=== PATIENT | female | born 1945 | race Caucasian/White ===

== ENCOUNTER 2018-11-22 10:31 | Inpatient (IN) ==
[2018-11-22] MEDS ORDERED: 0.9 % Sodium Chloride 1,000 ML IVC ONE ×2 (10:39→11:22)
[2018-11-22] MEDS ORDERED: Ipratropium/Albuterol Neb 3 ML IH ONE (10:42)
[2018-11-22] MEDS ORDERED: Albuterol 2.5 MG/3 ML NEBULIZER IH ONE (10:43)
--- NOTE | 2018-11-22 10:47 | Emergency Department Note ---
Disposition Clinical Impression: Community acquired pneumonia, DVT prophylaxis, Hypoxia Disposition: Transfer Short-Term Hosp Referrals: Deandra Dominguez CNP [Primary Care Provider] - Forms: ED Satisfaction Letter Time of Disposition: 13:06 ( ) SOB HPI - General Chief Complaint: ED Shortness of Breath/Dyspnea Stated Complaint: shortness of breath Time Seen by Provider: 11/22/18 10:45 Source: patient, family Mode of arrival: private vehicle Limitations: no limitations Nursing Notes Reviewed: Yes Vital Signs Reviewed: Yes - History of Present Illness 73-year-old female brought to the emergency department by her with complaints of cough congestion and progressive shortness of breath. On arrival patient was found to have oxygen saturation on room air of 80% was placed on 2 L of oxygen by nasal cannula she is presently satting around 91%. She reports progressive shortness of breath over the last few days. Patient also reports that 2 months ago she had a stroke, which has caused her left leg to be numb and she does have some mild ambulatory difficulty. Patient reports a low-grade temperature at home, and production of yellow greenish sputum. Patient denies any vomiting or diarrhea and denies chest pain Pt Subjective Complaint: shortness of breath, cough Onset (ago): Just WAGE HAND Context: recent illness Severity: moderate Consistency/Duration: constant Improves with: oxygen, rest Worsens with: exertion, movement, coughing Associated symptoms: Reports: cough, wheezing, sputum production. Denies: chest pain, pain with inspiration, fever, orthopnea, lower extremity pain, polyuria, polydipsia, parasthesias, palpitations, hemoptysis, diaphoresis, nausea/vomiting, syncope, abdominal pain Treatment prior to arrival: none Cough present: Yes Cough Description: Voluntary Cough Frequency: Intermittent Sputum production: Yes Sputum Amount: Small Sputum Color: Yellow - Related Data Home Medications Medication Instructions Recorded Confirmed Oxybutynin [Ditropan] 5 mg PO BID 09/05/16 11/22/18 Losartan/Hydrochlorothiazide 1 tab PO DAILY 08/24/17 11/22/18 [Losartan-Hctz 50-12.5 mg Tab] Cholecalciferol (Vitamin D3) 1,000 unit PO DAILY 01/24/18 11/22/18 [Vitamin D3] Meloxicam [Mobic] 15 mg PO DAILY 01/24/18 11/22/18 Tizanidine HCl 4 mg PO TID PRN 01/24/18 11/22/18 hydrOXYzine pamoate [HydrOXYzine 25 mg PO BID PRN 01/24/18 11/22/18 Pamoate] Furosemide [Lasix] 40 mg PO DAILY PRN 01/25/18 11/22/18 Primidone [Mysoline] 50 mg PO DAILY 01/25/18 11/22/18 Atorvastatin [Lipitor] 40 mg PO HS 08/25/18 11/22/18 Gabapentin [Neurontin] 600 mg PO TID 08/25/18 11/22/18 Omeprazole 20 mg PO DAILY 08/25/18 11/22/18 Tolterodine Tartrate [Detrol] 4 mg PO DAILY 08/25/18 11/22/18 Apixaban [Eliquis] 5 mg PO BID 11/22/18 11/22/18 Previous Rx's Medication Instructions Recorded Aspirin 81 mg PO DAILY #30 tab.chew 04/13/18 Allergies Allergy/AdvReac Type Severity Reaction Status Date / Time cephalexin [From Keflex] AdvReac Itching Verified 04/11/18 15:30 Sulfa (Sulfonamide AdvReac Itching Verified 04/11/18 15:30 Antibiotics) Constitutional: Denies: fever, chills, weakness, weight change Eyes: Denies: eye pain, eye discharge, vision change ENT ED: Denies: ear pain, throat pain, dental pain, hearing loss, epistaxis, congestion, dysphagia Cardiovascular: Denies: chest pain, palpitations, dyspnea on exertion, edema, syncope Respiratory: Reports: cough, dyspnea, wheezes. Denies: hemoptysis, stridor Gastrointestinal: Denies: abdominal pain, nausea, vomiting, diarrhea, cons tipation, hematemesis, melena, hematochezia Genitourinary: Denies: dysuria, frequency, hematuria, discharge Musculoskeletal: Denies: back pain, neck pain, arthralgia, myalgia Integumentary: Denies: rash, abrasion, lesions Neurological: Denies: headache, weakness, numbness, paresthesias, confusion, a bnormal gait, vertigo Psychiatric: Denies: anxiety, depression, suicidal thoughts, homicidal thoughts, auditory hallucinations, visual hallucinations Endocrine: Denies: fatigue Hematological/Lymphatic: Denies: easy bleeding, easy bruising Allergic/Immunologic: Denies: facial swelling, urticaria Past Medical History - Past Medical History Medical history: Reports: arthritis, atrial fibrillation, COPD, CVA, GERD, hyperlipidemia, hypertension, pulmonary embolus Surgical history: Reports: appendectomy, cholecystectomy, knee replacement, orthopedic, other, other Psychiatric history: Reports: no psych history - Social History Smoking Status: Never smoker Smokeless Tobacco Status: No Alcohol use: Reports: none Drug use: Reports: none Physical Exam - General Limitations: no limitations General appearance: alert - Head Head exam: atraumatic, normocephalic, normal inspection - Eye Eye exam: Present: normal appearance, PERRL, EOMI - Expanded Eye Exam Pupils: Left: reactive - ENT ENT exam: normal exam, normal oropharynx, mucous membranes moist - Expanded ENT Exam External ear exam: Present: normal external inspection Mouth exam: Present: normal external inspection Teeth exam: Present: normal inspection Throat exam: Present: normal inspection - Neck Neck exam: Present: normal inspection, full ROM, trachea midline - Chest Chest inspection: Present: normal inspection, symmetric chest wall rise - Respiratory Respiratory exam: Present: wheezes, accessory muscle use - Cardiovascular Cardiovascular exam: Present: regular rate, irregular rhythm, normal heart sounds - Abdominal Exam Abdominal exam: Present: soft, Non-Tender. Absent: tenderness, distention, guarding, rebound, rigidity - Extremities Exam Extremities exam: Present: normal inspection, full ROM. Absent: tenderness, pedal edema - Expanded Upper Extremity Exam Shoulder exam: Present: normal inspection, full ROM Arm exam: Present: normal inspection, full ROM Elbow exam: Present: normal inspection, full ROM Forearm/Wrist exam: Present: normal inspection, full ROM Hand exam: Present: normal inspection, full ROM Vascular exam: Normal: capillary refill, radial pulse - Expanded Lower Extremity Exam Hip/Pelvis exam: Present: normal inspection, full ROM Upper leg exam: Present: normal inspection, full ROM Knee exam: Present: normal inspection, full ROM Lower leg exam: Present: normal inspection, full ROM Ankle exam: Present: normal inspection, full ROM Foot/toe exam: Present: normal inspection, full ROM Neurovascular/Tendon exam: Absent: motor deficit, sensory deficit, tendon deficit - Back Exam Back exam: Present: normal inspection, full ROM. Absent: tenderness - Neurological Exam Neurological exam: Present: alert, oriented X3 - Expanded Neurological Exam Patient oriented to: Present: person, place, time Coma Scale Eye Opening: Spontaneous Coma Scale Motor Response: Obeys Commands Coma Scale Verbal Response: Oriented Coma Scale Total: 15 - Psychiatric Psychiatric exam: Present: normal affect, normal mood - Skin Skin exam: Present: warm, dry, intact, normal color Course Vital Signs Temperature 97.3 F L 11/22/18 10:32 Pulse Rate 64 11/22/18 10:32 Respiratory Rate 14 11/22/18 10:32 Blood Pressure 162/77 11/22/18 10:32 O2 Sat by Pulse Oximetry 80 11/22/18 10:32 Temperature 97.3 F L 11/22/18 10:32 Pulse Rate 68 11/22/18 13:04 Respiratory Rate 18 11/22/18 13:04 Blood Pressure 162/77 11/22/18 13:04 O2 Sat by Pulse Oximetry 94 11/22/18 13:04 Oxygen Delivery Oxygen Delivery Nasal Cannula Shortness of Breath/Dyspnea - MDM Narrative Medical decision making narrative: Labs are obtained including CBC chemistry troponin and BNP and coags patient was given DuoNeb 1, albuterol 1, Solu-Medrol 125 mg IV, blood culture 2 was obtained. Patient was given a 1 L bolus of normal saline, and given Levaquin 750 mg IV. Patient is allergic to cephalexin and sulfa and as a result cannot receive Rocephin. At this point consultation is obtained with hospitalist Dr. Childs, patient is to be admitted for IV antibiotics and further breathing treatments - Differential Diagnosis Likely: acute exacerbation of chronic obstructive airways disease, congestive heart failure, pneumonia, asthma with exacerbation, pulmonary embolism - Medical Records Medical records reviewed: Yes I reviewed the patient's medical records. - Lab Data Lab results reviewed: Yes I reviewed the patient's lab results. Result diagrams: 11/22/18 10:53 11/22/18 10:53 Lab Results 11/22/18 11/22/18 11/22/18 Range/Units 10:53 10:53 10:53 WBC 7.3 (4.3-11.1) K/mcL RBC 4.07 (3.82-4.97) M/mcL Hgb 11.6 (11.5-15.4) g/dL Hct 36.2 (35.3-44.9) % MCV 88.9 (83.0-100.0) fL MCH 28.5 (28.0-33.3) pg MCHC 32.0 (31.6-35.5) g/dL RDW 13.7 (11.5-14.5) % Plt Count 396 (140-400) K/mcL MPV 10.0 (9.4-12.4) fL Immature Gran % 0.3 (0-4) % Seg Neutrophils % 56.5 % Lymphocytes % 27.5 % Monocytes % 8.9 % Eosinophils % 6.0 % Basophils % 0.8 % Neutrophils # 4.1 (1.6-8.9) K/mcL Lymphocytes # 2.0 (0.6-4.6) K/mcL Monocytes # 0.7 (0.0-1.3) K/mcL Eosinophils # 0.4 (0.0-0.6) K/mcL Basophils # 0.1 (0.0-0.2) K/mcL PT 19.7 H (9.4-12.1) Seconds INR 1.7 APTT 44.4 H (26.0-36.0) Seconds D-Dimer (0-500) ng/mLFEU Sample Site ABG pH (7.32-7.45) pH Units ABG pCO2 (35-45) mmHg ABG pO2 (85-104) mmHg ABG HCO3 (21-27) mEq/L ABG Total CO2 (20-26) mEq/L ABG O2 Saturation (95-98) % ABG Base Excess (-2 to 3) mEq/L Bryan Test O2 Delivery Device Inspired O2 (1-15=lpm [id number]=%) Sodium 139 (136-145) mEq/L Potassium 3.6 (3.5-5.1) mEq/L Chloride 105 (98-107) mEq/L Carbon Dioxide 24 (23-29) mEq/L BUN 11 (8-23) mg/dL Creatinine 0.69 (0.60-1.20) mg/dL Est GFR ( Amer) > 60 (> 60) Est GFR (Non-Af Amer) > 60 (> 60) BUN/Creatinine Ratio 16 (6-26) Glucose 109 H (70-105) mg/dL Calculated Osmolality 288 (280-300) Lactic Acid (0.5-2.2) mmol/L Calcium 8.8 (8.6-10.3) mg/dL Creatine Kinase 36 (30-223) Units/L Troponin I < 0.03 (< 0.04) ng/mL B-Natriuretic Peptide (Less than 100) pg/mL Urine Color (Yellow) Urine Clarity (Clear) Urine pH (5.0-8.0) pH Units Ur Specific [place] (1.010-1.025) Urine Protein (Neg-Trace) mg/dL Urine Glucose (UA) (Normal) mg/dL Urine Ketones (Negative) mg/dL Urine Blood (Negative) Urine Nitrite (Negative) Urine Bilirubin (Negative) Urine Urobilinogen (Normal) mg/dL Ur Leukocyte Esterase (Negative) 11/22/18 11/22/18 11/22/18 Range/Units 10:53 10:53 10:53 WBC (4.3-11.1) K/mcL RBC (3.82-4.97) M/mcL Hgb (11.5-15.4) g/dL Hct (35.3-44.9) % MCV (83.0-100.0) fL MCH (28.0-33.3) pg MCHC (31.6-35.5) g/dL RDW (11.5-14.5) % Plt Count (140-400) K/mcL MPV (9.4-12.4) fL Immature Gran % (0-4) % Seg Neutrophils % % Lymphocytes % % Monocytes % % Eosinophils % % Basophils % % Neutrophils # (1.6-8.9) K/mcL Lymphocytes # (0.6-4.6) K/mcL Monocytes # (0.0-1.3) K/mcL Eosinophils # (0.0-0.6) K/mcL Basophils # (0.0-0.2) K/mcL PT (9.4-12.1) Seconds INR APTT (26.0-36.0) Seconds D-Dimer 1002 H (0-500) ng/mLFEU Sample Site ABG pH (7.32-7.45) pH Units ABG pCO2 (35-45) mmHg ABG pO2 (85-104) mmHg ABG HCO3 (21-27) mEq/L ABG Total CO2 (20-26) mEq/L ABG O2 Saturation (95-98) % ABG Base Excess (-2 to 3) mEq/L Bryan Test O2 Delivery Device Inspired O2 (1-15=lpm [id number]=%) Sodium (136-145) mEq/L Potassium (3.5-5.1) mEq/L Chloride (98-107) mEq/L Carbon Dioxide (23-29) mEq/L BUN (8-23) mg/dL Creatinine (0.60-1.20) mg/dL Est GFR ( Amer) (> 60) Est GFR (Non-Af Amer) (> 60) BUN/Creatinine Ratio (6-26) Glucose (70-105) mg/dL Calculated Osmolality (280-300) Lactic Acid 1.4 (0.5-2.2) mmol/L Calcium (8.6-10.3) mg/dL Creatine Kinase (30-223) Units/L Troponin I (< 0.04) ng/mL B-Natriuretic Peptide 136 H (Less than 100) pg/mL Urine Color (Yellow) Urine Clarity (Clear) Urine pH (5.0-8.0) pH Units Ur Specific [place] (1.010-1.025) Urine Protein (Neg-Trace) mg/dL Urine Glucose (UA) (Normal) mg/dL Urine Ketones (Negative) mg/dL Urine Blood (Negative) Urine Nitrite (Negative) Urine Bilirubin (Negative) Urine Urobilinogen (Normal) mg/dL Ur Leukocyte Esterase (Negative) 11/22/18 11/22/18 Range/Units 11:22 12:30 WBC (4.3-11.1) K/mcL RBC (3.82-4.97) M/mcL Hgb (11.5-15.4) g/dL Hct (35.3-44.9) % MCV (83.0-100.0) fL MCH (28.0-33.3) pg MCHC (31.6-35.5) g/dL RDW (11.5-14.5) % Plt Count (140-400) K/mcL MPV (9.4-12.4) fL Immature Gran % (0-4) % Seg Neutrophils % % Lymphocytes % % Monocytes % % Eosinophils % % Basophils % % Neutrophils # (1.6-8.9) K/mcL Lymphocytes # (0.6-4.6) K/mcL Monocytes # (0.0-1.3) K/mcL Eosinophils # (0.0-0.6) K/mcL Basophils # (0.0-0.2) K/mcL PT (9.4-12.1) Seconds INR APTT (26.0-36.0) Seconds D-Dimer (0-500) ng/mLFEU Sample Site L Brach ABG pH 7.44 (7.32-7.45) pH Units ABG pCO2 31 L (35-45) mmHg ABG pO2 64 L (85-104) mmHg ABG HCO3 21 (21-27) mEq/L ABG Total CO2 22 (20-26) mEq/L ABG O2 Saturation 93 L (95-98) % ABG Base Excess -3 L (-2 to 3) mEq/L Bryan Test N/A O2 Delivery Device Cannula Inspired O2 2.0 (1-15=lpm [id number]=%) Sodium (136-145) mEq/L Potassium (3.5-5.1) mEq/L Chloride (98-107) mEq/L Carbon Dioxide (23-29) mEq/L BUN (8-23) mg/dL Creatinine (0.60-1.20) mg/dL Est GFR ( Amer) (> 60) Est GFR (Non-Af Amer) (> 60) BUN/Creatinine Ratio (6-26) Glucose (70-105) mg/dL Calculated Osmolality (280-300) Lactic Acid (0.5-2.2) mmol/L Calcium (8.6-10.3) mg/dL Creatine Kinase (30-223) Units/L Troponin I (< 0.04) ng/mL B-Natriuretic Peptide (Less than 100) pg/mL Urine Color Yellow (Yellow) Urine Clarity Cloudy A (Clear) Urine pH 6.5 (5.0-8.0) pH Units Ur Specific [place] 1.010 (1.010-1.025) Urine Protein Negative (Neg-Trace) mg/dL Urine Glucose (UA) Normal (Normal) mg/dL Urine Ketones Negative (Negative) mg/dL Urine Blood Trace-intact H (Negative) Urine Nitrite Negative (Negative) Urine Bilirubin Negative (Negative) Urine Urobilinogen Normal (Normal) mg/dL Ur Leukocyte Esterase Moderate H (Negative) - Radiology Data Radiology results reviewed: Yes I reviewed the patient's radiology results. Chest x-ray by radiology reading shows development of bilateral pneumonia versus pulmonary edema - EKG Data EKG attestation: Yes I reviewed and interpreted this EKG. EKG results narrative: EKG has heart rate of 51, shows a flutter, with 4-1 conduction Rate: Reports: normal Rhythm: Reports: A. flutter [place]/QRS: Reports: normal
[2018-11-22 11:00] LABS: Basophils # 0.1 K/mcL (0.0-0.2); Basophils % 0.8 %; Eosinophils # 0.4 K/mcL (0.0-0.6); Hematocrit 36.2 % (35.3-44.9); Hemoglobin 11.6 g/dL (11.5-15.4); Immature Granulocytes % 0.3 % (0-4); Lymphocytes % 27.5 %; Mean Corpuscular Hemoglobin 28.5 pg (28.0-33.3); Mean Corpuscular Volume 88.9 fL (83.0-100.0); Monocytes # 0.7 K/mcL (0.0-1.3); Monocytes % 8.9 %; Neutrophils # 4.1 K/mcL (1.6-8.9); Platelet Count 396 K/mcL (140-400); Red Blood Count 4.07 M/mcL (3.82-4.97); Red Cell Distribution Width 13.7 % (11.5-14.5); Segmented Neutrophils % 56.5 %
[2018-11-22] MEDS ORDERED: Levofloxacin 750 MG/150 ML 750 MG/150 ML BAG IVPB ONE (11:15)
[2018-11-22 11:18] LABS: BUN/Creatinine Ratio 16 (6-26); Blood Urea Nitrogen 11 mg/dL (8-23); Calcium 8.8 mg/dL (8.6-10.3); Carbon Dioxide 24 mEq/L (23-29); Chloride 105 mEq/L (98-107); Creatine Kinase 36 Units/L (30-223); Glucose 109 mg/dL (70-105); Osmolality,Calculated 288 (280-300); Potassium 3.6 mEq/L (3.5-5.1); Sodium 139 mEq/L (136-145); Troponin I < 0.03 ng/mL (< 0.04); eGFR For Non-African Americans > 60 (> 60)
[2018-11-22 11:25] LABS: ABG Base Excess -3 mEq/L (-2 to 3); ABG HCO3 21 mEq/L (21-27); ABG Oxygen Saturation 93 % (95-98); ABG PCO2 31 mmHg (35-45); ABG PH 7.44 pH Units (7.32-7.45); ABG PO2 64 mmHg (85-104); ABG TCO2 22 mEq/L (20-26)
[2018-11-22 11:34] LABS: INR 1.7; Prothrombin Time 19.7 Seconds (9.4-12.1)
[2018-11-22 11:37] LABS: Activated Partial Thrombo Time 44.4 Seconds (26.0-36.0)
[2018-11-22] MEDS ORDERED: Naloxone 0.4 MG/ML INJ IVP PRN ×2 (11:46→14:07)
[2018-11-22] MEDS ORDERED: Isovue-370 500 ML BOTTLE IVP ONE (11:59)
[2018-11-22] MEDS ORDERED: Doxycycline 100 MG in 0.9 % Sodium Chloride Mini Bag 100 ML IVPB SCH (12:00)
[2018-11-22 12:51] LABS: Bilirubin,Urine Negative (Negative); Blood,Urine Trace-intact (Negative); Clarity,Urine Cloudy (Clear); Color,Urine Yellow (Yellow); Glucose,Urine (UA) Normal (Normal); Ketones,Urine Negative (Negative); Leukocyte Esterase,Urine Moderate (Negative); Nitrite,Urine Negative (Negative); PH,Urine 6.5 pH Units (5.0-8.0); Protein,Urine Negative (Neg-Trace); Urobilinogen,Urine Normal (Normal)
[2018-11-22 13:05] LABS: RBC,Urine 0-3 per hpf (0-3); WBC,Urine 30-50 per hpf (0-3)
[2018-11-22 13:06] LABS: Bacteria,Urine Many per hpf (None-Few); Mucus,Urine Few (Few); Squamous Epithelial Cell,Urine Many per lpf (None-Few)
[2018-11-22] MEDS ORDERED: tiZANidine 4 MG TABLET PO PRN (14:07)
[2018-11-22] MEDS ORDERED: Furosemide 40 MG TABLET PO PRN (14:07)
[2018-11-22] MEDS ORDERED: hydrOXYzine pamoate 25 MG CAPSULE PO PRN (14:07)
[2018-11-22] MEDS: Gabapentin 300 MG CAPSULE PO SCH ×2 (15:50→20:55)
--- NOTE | 2018-11-22 18:29 | Internal Med History&Physical ---
Date of Encounter: 11/22/18 Time of Encounter: 18:00 Assessment and Plan (1) Community acquired pneumonia Current visit: Yes Status: Acute Chest CTA in ER showed bibasilar atelectasis/infiltrate with indeterminate mediastinal and bilateral hilar lymphadenopathy. She will be started on antibiotics and probiotics. Qualifiers: Laterality: unspecified laterality Qualified Code(s): J18.9 - Pneumonia, unspecified organism (2) Hypertension Current visit: No Status: Chronic Continue losartan/HCTZ Qualifiers: Hypertension type: essential hypertension Qualified Code(s): I10 - Essential (primary) hypertension (3) Paroxysmal atrial fibrillation Current visit: No Status: Chronic Continue Eliquis (4) Low TSH level Current visit: No Status: Acute TSH was 0.166 on 11/08/2015. Recheck in a.m. Internal Medicine - H&P: HPI Chief complaint: Dyspnea, chills, dizziness Admitted From: Emergency Dept Plans for Post Hospital Care: Home History of present illness: Ms. Smith is a 73 year old female who came to emergency room stating she developed a "cold" approximately 2 weeks ago. She noticed increase in dyspnea 5-6 days ago with occasional cough productive of yellow sputum. She had chills, headache, and dizziness/vertigo. She denies vomiting diarrhea or abdominal pain. When symptoms did not improve she came to emergency room and was evaluated. She was felt to have bibasilar pneumonia and [facility]. Respiratory history is significant for being a lifelong nonsmoker and having no known chronic lung disease. She has been diagnosed with WEST but has not tolerated CPAP mask in the past. Past Med Surg Social Fam HX - Past Medical History Medical history: arthritis, atrial fibrillation, COPD, CVA, GERD, hyperlipidemia, hypertension, pulmonary embolus Additional medical history: Parkinson's Psychiatric history: no psych history - Past Surgical History Surgical History: appendectomy, cholecystectomy, knee replacement, orthopedic, other, other Additional surgical history: Bladder surgery. back and neck sx - Social History Smoking Status: Never smoker Smokeless Tobacco Status: No Alcohol use: none Drug use: none - Family History Mother Living Status: Hx Family Cancer: Yes Hx Family Neurologic Disorders: Yes (alzhemiers, tremors) Father Living Status: Hx Family Cardiac Disorders: Yes (MN) Internal Medicine - H&P: Meds Oxybutynin [Ditropan] 5 mg PO BID 09/05/16 [History] Losartan/Hydrochlorothiazide [Losartan-Hctz 50-12.5 mg Tab] 1 tab PO DAILY 08/24/17 [History] Cholecalciferol (Vitamin D3) [Vitamin D3] 1,000 unit PO DAILY 01/24/18 [History] Meloxicam [Mobic] 15 mg PO DAILY 01/24/18 [History] Tizanidine HCl 4 mg PO TID PRN 01/24/18 [History] hydrOXYzine pamoate [HydrOXYzine Pamoate] 25 mg PO BID PRN 01/24/18 [History] Furosemide [Lasix] 40 mg PO DAILY PRN 01/25/18 [History] Primidone [Mysoline] 50 mg PO DAILY 01/25/18 [History] Aspirin 81 mg PO DAILY #30 tab.chew 04/13/18 [Rx] Atorvastatin [Lipitor] 40 mg PO HS 08/25/18 [History] Gabapentin [Neurontin] 600 mg PO TID 08/25/18 [History] Omeprazole 20 mg PO DAILY 08/25/18 [History] Tolterodine Tartrate [Detrol] 4 mg PO DAILY 08/25/18 [History] Apixaban [Eliquis] 5 mg PO BID 11/22/18 [History] Allergy/AdvReac Type Severity Reaction Status Date / Time cephalexin [From Keflex] AdvReac Itching Verified 04/11/18 15:30 Sulfa (Sulfonamide AdvReac Itching Verified 04/11/18 15:30 Antibiotics) All Systems PM: A 10-system review of systems was performed and is negative for pertinent findings except as documented above in the HPI. Review of systems: Review of systems from her October 2015 [facility] hospitalization were reviewed and revised as below. Gen.: Her weight has decreased from 90.6 kg on 08/18/2018 to 81.647 kg at present time. Cardiovascular: She has a history of hypertension. Echocardiogram 04/12/2018 showed LVEF of 55-60%. The E/A ratio was 0.7 consistent with impaired relaxation/mild diastolic dysfunction. There was mild to moderate aortic insufficiency and mild aortic stenosis. Aortic valves were severely calcified. There was mild mitral regurgitation. Estimated RVSP was 37 mmHg. Interventricular septum and posterior wall thickness measurements were 1.11 and 0.89 cm respectively. There was significant LAE at 5.70 cm. She had an exercise stress test December 2011 which did not show evidence of ischemia. She denies MN. She had pulmonary embolism approximate 1999. She has paroxysmal atrial fibrillation. Respiratory: As per history of present illness GI: She has had cholecystectomy and has GERD but no known disorders of her liver or exocrine pancreas. : She has had 2 bladder surgeries in the past most recently in 1990. She has frequent urination and has had UTIs in the past. She denies other known kidney or bladder disorders. Endocrine: She has hyperlipidemia and vitamin D deficiency. She denies known diabetes or thyroid disease. Neurologic: She has familial tremor. 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. No surgical intervention was required. She has numbness and weakness in her left hand and leg. She had "laser surgery" on her spine in [place] 10/20/2015 for chronic low back pain. Hematology/oncology: She denies blood disorders cancers or anemia Psychiatric: She denies anxiety depression or other mental health issues. [place] skeletal: She has had left total knee replacement. She had laser spine surgery October 2015 followed by open surgery 2016 for chronic low back pain. She denies gout. - Constitutional Vitals: Temp Pulse Resp BP Pulse Ox 98.8 F 100 17 171/100 92 11/22/18 14:16 11/22/18 14:16 11/22/18 14:16 11/22/18 14:16 11/22/18 14:16 Exam: Gen.: She is a well-developed well-nourished female resting comfortably in bed who appears in no acute distress at present time HEENT: Head is atraumatic and normocephalic. Eyes: EOMI. There is no scleral icterus. Mouth: Mucosa is moist. Neck: Supple and nontender. There is no thyromegaly or adenopathy noted. Heart: Regular without murmurs gallops or ectopics Lungs: She has diminished breath since diffusely. No wheezes crackles or egophony are heard. Abdomen: Soft and nontender. No masses or guarding are noted. Extremities: There is no cyanosis edema or clubbing noted. Dorsalis pedis and posterior tibial pulses are trace palpable bilaterally. Neurologic: Mental status: She is talkative and a good historian. Cranial nerves: There is slight flattening of the right nasolabial fold. Her smile is overall symmetric. Tongue protrudes midline. EOMI. Motor: There is no pronator drift. She has a fine tremor at rest in her outstretched hands. Cerebellar: Finger to nose is intact bilaterally. Skin: Warm and dry Internal Med - H&P Results - Labs CBC & Chem 7: 11/22/18 10:53 11/22/18 10:53 Labs: Short CBC 11/22/18 Range/Units 10:53 WBC 7.3 (4.3-11.1) K/mcL Hgb 11.6 (11.5-15.4) g/dL Hct 36.2 (35.3-44.9) % Plt Count 396 (140-400) K/mcL Neutrophils # 4.1 (1.6-8.9) K/mcL BMP 11/22/18 10:53 Sodium 139 Potassium 3.6 Chloride 105 Carbon Dioxide 24 BUN 11 Creatinine 0.69 Glucose 109 H Calcium 8.8 Cardiac Enzymes 11/22/18 Range/Units 10:53 Troponin I < 0.03 (< 0.04) ng/mL Urine 11/22/18 Range/Units 12:30 Urine Color Yellow (Yellow) Urine Clarity Cloudy A (Clear) Urine pH 6.5 (5.0-8.0) pH Units Ur Specific [place] 1.010 (1.010-1.025) Urine Protein Negative (Neg-Trace) mg/dL Urine Glucose (UA) Normal (Normal) mg/dL - ABG Interpretation ABG results: 11/22/18 11:22 ABG pH 7.44 ABG pCO2 31 L ABG pO2 64 L ABG HCO3 21 ABG Total CO2 22 ABG O2 Saturation 93 L ABG Base Excess -3 L - Impressions ITS Impressions Chest X-Ray 11/22/18 10:39 IMPRESSION: Developing bilateral airspace disease, either early pneumonia or pulmonary edema D/ / Shashank Grier MD / Shashank Grier MD Interpreting Provider: Shashank Grier MD Chest CTA 11/22/18 11:59 IMPRESSION: 1. No acute pulmonary artery embolism. 2. Cardiomegaly with vascular congestion and bilateral pleural effusions. 3. Bibasilar atelectasis or infiltrate. 4. Hiatal hernia. 5. Indeterminate mediastinal and bilateral hilar lymphadenopathy. Recommend attention on follow-up radiographs. Differential includes reactive adenopathy versus potential neoplastic involvement. D/ / 11/22/2018 13:23:17 Shlomo Xiao MD / [facility] Interpreting Provider: Shlomo Xiao MD Head CT 11/22/18 12:18 IMPRESSION: No acute intracranial abnormality. D/ / Shlomo Xiao MD / Shlomo Xiao MD Interpreting Provider: Shlomo Xiao MD
[2018-11-22] MEDS: Apixaban 5 MG TABLET PO SCH (20:55)
[2018-11-22] MEDS: Lactobacillus 1 EACH CAP.SPRINK PO SCH (20:55)
[2018-11-22] MEDS: Melatonin 3 MG TABLET PO PRN (21:00)
[2018-11-23] MEDS: Doxycycline 100 MG in 0.9 % Sodium Chloride Mini Bag 100 ML IVPB SCH ×3 (00:37→23:53)
[2018-11-23 06:51] LABS: Basophils % 0.6 %; Eosinophils # 0.6 K/mcL (0.0-0.6); Eosinophils % 8.5 %; Hemoglobin 9.9 g/dL (11.5-15.4); Immature Granulocytes % 0.3 % (0-4); Lymphocytes # 2.1 K/mcL (0.6-4.6); Lymphocytes % 33.1 %; Mean Corpuscular HGB Conc 30.9 g/dL (31.6-35.5); Mean Corpuscular Hemoglobin 28.3 pg (28.0-33.3); Mean Corpuscular Volume 91.4 fL (83.0-100.0); Mean Platelet Volume 10.3 fL (9.4-12.4); Monocytes # 0.8 K/mcL (0.0-1.3); Monocytes % 12.2 %; Neutrophils # 2.9 K/mcL (1.6-8.9); Platelet Count 354 K/mcL (140-400); Red Cell Distribution Width 14.3 % (11.5-14.5); Segmented Neutrophils % 45.3 %
[2018-11-23 07:20] LABS: BUN/Creatinine Ratio 17 (6-26); Blood Urea Nitrogen 11 mg/dL (8-23); Calcium 8.6 mg/dL (8.6-10.3); Carbon Dioxide 24 mEq/L (23-29); Chloride 110 mEq/L (98-107); Glucose 89 mg/dL (70-105); Magnesium 1.9 mg/dL (1.6-2.6); Osmolality,Calculated 291 (280-300); Potassium 3.6 mEq/L (3.5-5.1); Sodium 141 mEq/L (136-145); eGFR For Non-African Americans > 60 (> 60)
[2018-11-23 07:30] LABS: Thyroid Stimulating Hormone 1.477 mcIU/mL (0.340-5.600)
[2018-11-23] MEDS ORDERED: Aspirin 81 MG TAB.CHEW PO SCH (09:00)
[2018-11-23] MEDS ORDERED: Losartan/HCTZ 50-12.5 TABLET PO SCH (09:00)
[2018-11-23] MEDS ORDERED: Primidone 50 MG TABLET PO SCH (09:00)
[2018-11-23] MEDS ORDERED: TOLTERODINE TARTRATE 4 MG PO SCH (09:00)
--- NOTE | 2018-11-23 09:47 | Internal Med Progress Note ---
Date of Encounter: 11/23/18 Time of Encounter: 09:35 - Assessment and plan (1) Community acquired pneumonia Current Visit: Yes Status: Acute Assessment and plan: November 23. Continue Levaquin and doxycycline with lactobacillus. Qualifiers: Laterality: unspecified laterality Qualified Code(s): J18.9 - Pneumonia, unspecified organism (2) Hypertension Current Visit: No Status: Chronic Assessment and plan: November 23. Continue Hyzaar. Qualifiers: Hypertension type: essential hypertension Qualified Code(s): I10 - Essenti al (primary) hypertension (3) Paroxysmal atrial fibrillation Current Visit: No Status: Chronic Assessment and plan: November 23. Continue Eliquis (4) Low TSH level Current Visit: No Status: Acute Assessment and plan: November 23. TSH normal at 1.477. - Subjective Interval history: November 23. She has no new complaints and feels slightly improved but not back to her baseline. - Constitutional Vitals: Temp Pulse Resp BP Pulse Ox 97.7 F 57 18 124/75 96 11/23/18 07:25 11/23/18 07:25 11/23/18 07:25 11/23/18 07:25 11/23/18 07:25 Exam: She is resting comfortably in bed and appears in no acute distress. Her affect is bright and cheerful. I reviewed her medications and lab results. Internal Medicine: Result - Labs CBC & Chem 7: 11/23/18 06:03 11/23/18 06:03 Labs: Short CBC 11/22/18 11/23/18 Range/Units 10:53 06:03 WBC 7.3 6.5 (4.3-11.1) K/mcL Hgb 11.6 9.9 L D (11.5-15.4) g/dL Hct 36.2 32.0 L (35.3-44.9) % Plt Count 396 354 (140-400) K/mcL Neutrophils # 4.1 2.9 (1.6-8.9) K/mcL BMP 11/22/18 11/23/18 10:53 06:03 Sodium 139 141 Potassium 3.6 3.6 Chloride 105 110 H Carbon Dioxide 24 24 BUN 11 11 Creatinine 0.69 0.66 Glucose 109 H 89 Calcium 8.8 8.6 Cardiac Enzymes 11/22/18 Range/Units 10:53 Troponin I < 0.03 (< 0.04) ng/mL Urine 11/22/18 Range/Units 12:30 Urine Color Yellow (Yellow) Urine Clarity Cloudy A (Clear) Urine pH 6.5 (5.0-8.0) pH Units Ur Specific [place] 1.010 (1.010-1.025) Urine Protein Negative (Neg-Trace) mg/dL Urine Glucose (UA) Normal (Normal) mg/dL - ABG Interpretation ABG results: ABG ABG pH 7.44 pH Units (7.32-7.45) 11/22/18 11:22 ABG pCO2 31 mmHg (35-45) L 11/22/18 11:22 ABG pO2 64 mmHg (85-104) L 11/22/18 11:22 ABG O2 Saturation 93 % (95-98) L 11/22/18 11:22 PT/INR, D-dimer PT 19.7 Seconds (9.4-12.1) H 11/22/18 10:53 D-Dimer 1002 ng/mLFEU (0-500) H 11/22/18 10:53 - Impressions Impressions Chest X-Ray 11/22/18 10:39 IMPRESSION: Developing bilateral airspace disease, either early pneumonia or pulmonary edema D/ / Shashank Grier MD / Shashank Grier MD Interpreting Provider: Shashank Grier MD Chest CTA 11/22/18 11:59 IMPRESSION: 1. No acute pulmonary artery embolism. 2. Cardiomegaly with vascular congestion and bilateral pleural effusions. 3. Bibasilar atelectasis or infiltrate. 4. Hiatal hernia. 5. Indeterminate mediastinal and bilateral hilar lymphadenopathy. Recommend attention on follow-up radiographs. Differential includes reactive adenopathy versus potential neoplastic involvement. D/ / 11/22/2018 13:23:17 Shlomo Xiao MD / erica Interpreting Provider: Shlomo Xiao MD Head CT 11/22/18 12:18 IMPRESSION: No acute intracranial abnormality. D/ / Shlomo Xiao MD / Shlomo Xiao MD Interpreting Provider: Shlomo Xiao MD Consult Discharge Plan - Plan Referrals: Deandra Dominguez CNP [Primary Care Provider] - 1 week
[2018-11-23] MEDS: Cholecalciferol (D-3) 1,000 UNIT TABLET PO SCH (09:56)
[2018-11-23] MEDS: Levofloxacin 750 MG/150 ML 750 MG/150 ML BAG IVPB SCH (09:56)
[2018-11-23] MEDS: Lactobacillus 1 EACH CAP.SPRINK PO SCH ×2 (09:57→20:18)
[2018-11-23] MEDS: Apixaban 5 MG TABLET PO SCH ×2 (09:57→20:18)
[2018-11-23] MEDS: Losartan/HCTZ 50-12.5 TABLET PO SCH (09:57)
[2018-11-23] MEDS: Gabapentin 300 MG CAPSULE PO SCH ×3 (09:57→20:18)
[2018-11-23] MEDS: Tolterodine LA (24 HR) 2 MG CAP.ER.24H PO SCH (11:35)
[2018-11-23] MEDS: Melatonin 3 MG TABLET PO PRN (20:18)
[2018-11-23] MEDS: Acetaminophen 325 MG TABLET PO PRN (23:17)
[2018-11-24 06:46] LABS: Basophils # 0.1 K/mcL (0.0-0.2); Basophils % 0.7 %; Eosinophils # 0.6 K/mcL (0.0-0.6); Eosinophils % 8.5 %; Hematocrit 31.6 % (35.3-44.9); Hemoglobin 9.6 g/dL (11.5-15.4); Immature Granulocytes % 0.3 % (0-4); Lymphocytes # 2.7 K/mcL (0.6-4.6); Lymphocytes % 37.6 %; Mean Corpuscular HGB Conc 30.4 g/dL (31.6-35.5); Mean Corpuscular Volume 92.1 fL (83.0-100.0); Mean Platelet Volume 10.7 fL (9.4-12.4); Monocytes # 0.7 K/mcL (0.0-1.3); Monocytes % 9.9 %; Neutrophils # 3.1 K/mcL (1.6-8.9); Platelet Count 353 K/mcL (140-400); Red Blood Count 3.43 M/mcL (3.82-4.97); Red Cell Distribution Width 14.5 % (11.5-14.5)
[2018-11-24] MEDS: Levofloxacin 750 MG/150 ML 750 MG/150 ML BAG IVPB SCH (08:07)
[2018-11-24] MEDS: Apixaban 5 MG TABLET PO SCH (08:08)
[2018-11-24] MEDS: Lactobacillus 1 EACH CAP.SPRINK PO SCH ×2 (08:08→21:02)
[2018-11-24] MEDS: Losartan/HCTZ 50-12.5 TABLET PO SCH (08:09)
[2018-11-24] MEDS: Acetaminophen 325 MG TABLET PO PRN (08:09)
[2018-11-24] MEDS: Gabapentin 300 MG CAPSULE PO SCH ×3 (08:09→21:02)
[2018-11-24] MEDS: Tolterodine LA (24 HR) 2 MG CAP.ER.24H PO SCH (08:09)
[2018-11-24] MEDS: Cholecalciferol (D-3) 1,000 UNIT TABLET PO SCH (08:10)
--- NOTE | 2018-11-24 11:32 | Internal Med Progress Note ---
Date of Encounter: 11/24/18 Time of Encounter: 11:25 - Assessment and plan (1) Community acquired pneumonia Current Visit: Yes Status: Acute Assessment and plan: November 23. Continue Levaquin and doxycycline with lactobacillus. Qualifiers: Laterality: unspecified laterality Qualified Code(s): J18.9 - Pneumonia, unspecified organism (2) Hypertension Current Visit: No Status: Chronic Assessment and plan: November 23. Continue Hyzaar. November 24. Blood pressure now borderline low. Hold Hyzaar. Continue propranolol (for tremor also). Qualifiers: Hypertension type: essential hypertension Qualified Code(s): I10 - Essen tial (primary) hypertension (3) Paroxysmal atrial fibrillation Current Visit: No Status: Chronic Assessment and plan: November 23. Continue Eliquis (4) Low TSH level Current Visit: No Status: Acute Assessment and plan: November 23. TSH normal at 1.477. (5) Anemia Current Visit: Yes Status: Acute Assessment and plan: November 24. Hemoglobin has decreased to 9.6. Aspirin has been discontinued. Mobic was discontinued on admission. Eliquis used for paroxysmal AF. Check anemia testing in a.m. and monitor CBC. Qualifiers: Anemia type: unspecified type Qualified Code(s): D64.9 - Anemia, unspecified - Subjective Interval history: November 23. She has no new complaints and feels slightly improved but not back to her baseline. November 24. She complaints of a severe headache rating it as a 9/10. She had an episode of vomiting earlier. - Constitutional Vitals: Temp Pulse Resp BP Pulse Ox 98.0 F 62 16 100/73 94 11/24/18 08:21 11/24/18 08:21 11/24/18 08:21 11/24/18 08:21 11/24/18 08:21 Exam: She is lying in bed and appears in minimal discomfort. She is holding an emesis basin with vomit. I reviewed her medications and lab results. Internal Medicine: Result - Labs CBC & Chem 7: 11/24/18 05:50 11/23/18 06:03 Labs: Short CBC 11/24/18 Range/Units 05:50 WBC 7.1 (4.3-11.1) K/mcL Hgb 9.6 L (11.5-15.4) g/dL Hct 31.6 L (35.3-44.9) % Plt Count 353 (140-400) K/mcL Neutrophils # 3.1 (1.6-8.9) K/mcL - ABG Interpretation ABG results: ABG ABG pH 7.44 pH Units (7.32-7.45) 11/22/18 11:22 ABG pCO2 31 mmHg (35-45) L 11/22/18 11:22 ABG pO2 64 mmHg (85-104) L 11/22/18 11:22 ABG O2 Saturation 93 % (95-98) L 11/22/18 11:22 PT/INR, D-dimer PT 19.7 Seconds (9.4-12.1) H 11/22/18 10:53 D-Dimer 1002 ng/mLFEU (0-500) H 11/22/18 10:53 Consult Discharge Plan - Plan Referrals: Deandra Dominguez, ELLEN [Primary Care Provider] - 1 week
[2018-11-24] MEDS ORDERED: Ondansetron 4 MG/2 ML VIAL IVP PRN (11:36)
[2018-11-24] MEDS ORDERED: Ketorolac 30 MG/ML VIAL IVP PRN (11:37)
[2018-11-24] MEDS: Doxycycline 100 MG in 0.9 % Sodium Chloride Mini Bag 100 ML IVPB SCH ×2 (12:13→23:36)
[2018-11-24] MEDS: 0.45 % Sodium Chloride w/KCl 20 MEQ/1,000 ML MLS IVC SCH ×2 (13:19→23:37)
[2018-11-25 05:35] LABS: Basophils # 0.1 K/mcL (0.0-0.2); Basophils % 0.8 %; Eosinophils # 0.7 K/mcL (0.0-0.6); Eosinophils % 9.3 %; Hematocrit 31.3 % (35.3-44.9); Hemoglobin 9.7 g/dL (11.5-15.4); Immature Granulocytes % 0.3 % (0-4); Lymphocytes # 2.5 K/mcL (0.6-4.6); Mean Corpuscular Hemoglobin 28.8 pg (28.0-33.3); Mean Corpuscular Volume 92.9 fL (83.0-100.0); Mean Platelet Volume 9.9 fL (9.4-12.4); Monocytes # 0.6 K/mcL (0.0-1.3); Monocytes % 8.2 %; Neutrophils # 3.5 K/mcL (1.6-8.9); Platelet Count 329 K/mcL (140-400); Red Blood Count 3.37 M/mcL (3.82-4.97); Red Cell Distribution Width 14.5 % (11.5-14.5); Segmented Neutrophils % 47.4 %
[2018-11-25 05:58] LABS: BUN/Creatinine Ratio 21 (6-26); Blood Urea Nitrogen 17 mg/dL (8-23); Calcium 8.4 mg/dL (8.6-10.3); Carbon Dioxide 24 mEq/L (23-29); Chloride 110 mEq/L (98-107); Glucose 103 mg/dL (70-105); Osmolality,Calculated 290 (280-300); Potassium 3.9 mEq/L (3.5-5.1); Sodium 139 mEq/L (136-145); eGFR For Non-African Americans > 60 (> 60)
[2018-11-25 07:12] VITALS: BP 135/80
[2018-11-25] MEDS: Levofloxacin 750 MG/150 ML 750 MG/150 ML BAG IVPB SCH (08:32)
[2018-11-25] MEDS: Lactobacillus 1 EACH CAP.SPRINK PO SCH (08:32)
[2018-11-25] MEDS: Cholecalciferol (D-3) 1,000 UNIT TABLET PO SCH (08:32)
[2018-11-25] MEDS: Gabapentin 300 MG CAPSULE PO SCH ×2 (08:32→15:14)
[2018-11-25] MEDS: Tolterodine LA (24 HR) 2 MG CAP.ER.24H PO SCH (08:32)
[2018-11-25 09:46] LABS: % Iron Saturation 8 % (15-50); Iron 28 mcg/dL (50-170); Transferrin 245 mg/dL (203-362)
[2018-11-25 10:04] LABS: Ferritin 27 ng/mL (10-120)
[2018-11-25 10:10] LABS: Folate 12.8 ng/mL (3.0-16.0)
--- NOTE | 2018-11-25 11:14 | Discharge Summary ---
Date of Encounter: 11/25/18 Time of Encounter: 11:00 - Discharge Diagnosis (1) Community acquired pneumonia Priority: Primary Status: Acute Qualifiers: Laterality: unspecified laterality Qualified Code(s): J18.9 - Pneumonia, unspecified organism (2) Hypertension Priority: Secondary Status: Chronic Qualifiers: Hypertension type: essential hypertension Qualified Code(s): I10 - Essential (primary) hypertension (3) Paroxysmal atrial fibrillation Priority: Secondary Status: Chronic (4) Low TSH level Priority: Secondary Status: Resolved (5) Anemia Priority: Secondary Status: Acute Qualifiers: Anemia type: iron deficiency Iron deficiency anemia type: unspecified iron deficiency Qualified Code(s): D50.9 - Iron deficiency anemia, unspecified Hospital course: Ms. Smith is a 73 year old female who came to emergency room stating she developed a "cold" approximately 2 weeks ago. She noticed increase in dyspnea 5-6 days ago with occasional cough productive of yellow sputum. She had chills, headache, and dizziness/vertigo. She denies vomiting diarrhea or abdominal pain. When symptoms did not improve she came to emergency room and was ev aluated. She was felt to have bibasilar pneumonia and was admitted to [facility] floor for ongoing care needs. Initial orders were written by the emergency room physician. I saw her on November 22 and performed the history and physical. She was started on IV Levaquin and doxycycline for pneumonia. She had good clinical response and remained afebrile during her hospital stay. WBC remained normal without left shift. She will continue with antibiotic and probiotic for 3 additional days at discharge. Air oximetry be checked on 6 minute walk prior to discharge. Anemia testing showed iron 28, transferrin saturation 8%, transferrin 245, ferritin 27, B12 572, and folate 12.8. She will be given ferrous sulfate with ascorbic acid. Her PCP can monitor labs. TSH returned normal at 1.477. BN peptide yumi to 373 by day of discharge. Her PCP can monitor. She complained of significant dry mouth. Oxybutynin/Detrol will be discontinued. Her PCP can monitor. On November 25 she was stable for discharge home. She will follow with her PCP Deandra Dominguez CNP within 1 week. - Time Spent with Patient Total time spent providing and/or coordinating discharge services: - Discharge Medications Prescriptions: New Ciprofloxacin [Cipro] 500 mg PO BID #6 tablet Doxycycline 100 mg PO BID #6 capsule Lactobacillus [Culturelle] 1 each PO BID #6 cap.sprink Ascorbic Acid [Vitamin C] 500 mg PO DAILY #30 tablet Ferrous Sulfate 325 mg PO DAILY #30 tablet Continue Tizanidine HCl 4 mg PO TID PRN PRN Reason: MUSCLE SPASMS hydrOXYzine pamoate [HydrOXYzine Pamoate] 25 mg PO BID PRN PRN Reason: Itching Furosemide [Lasix] 40 mg PO DAILY PRN PRN Reason: SWELLING Primidone [Mysoline] 50 mg PO DAILY Aspirin 81 mg PO DAILY #30 tab.chew Losartan/Hydrochlorothiazide [Losartan-Hctz 50-12.5 mg Tab] 1 tab PO DAILY Cholecalciferol (Vitamin D3) [Vitamin D3] 1,000 unit PO DAILY Atorvastatin [Lipitor] 40 mg PO HS Gabapentin [Neurontin] 600 mg PO TID Omeprazole 20 mg PO DAILY Apixaban [Eliquis] 5 mg PO BID Propranolol HCl 40 mg PO BID Discontinued Meloxicam [Mobic] 15 mg PO DAILY Oxybutynin [Ditropan] 5 mg PO BID Tolterodine Tartrate [Detrol] 4 mg PO DAILY Home Medications: Losartan/Hydrochlorothiazide [Losartan-Hctz 50-12.5 mg Tab] 1 tab PO DAILY 08/24/17 [History] Cholecalciferol (Vitamin D3) [Vitamin D3] 1,000 unit PO DAILY 01/24/18 [History] Tizanidine HCl 4 mg PO TID PRN 01/24/18 [History] hydrOXYzine pamoate [HydrOXYzine Pamoate] 25 mg PO BID PRN 01/24/18 [History] Furosemide [Lasix] 40 mg PO DAILY PRN 01/25/18 [History] Primidone [Mysoline] 50 mg PO DAILY 01/25/18 [History] Aspirin 81 mg PO DAILY #30 tab.chew 04/13/18 [Rx] Atorvastatin [Lipitor] 40 mg PO HS 08/25/18 [History] Gabapentin [Neurontin] 600 mg PO TID 08/25/18 [History] Omeprazole 20 mg PO DAILY 08/25/18 [History] Apixaban [Eliquis] 5 mg PO BID 11/22/18 [History] Propranolol HCl 40 mg PO BID 11/23/18 [History] Ascorbic Acid [Vitamin C] 500 mg PO DAILY #30 tablet 11/25/18 [Rx] Ciprofloxacin [Cipro] 500 mg PO BID #6 tablet 11/25/18 [Rx] Doxycycline 100 mg PO BID #6 capsule 11/25/18 [Rx] Ferrous Sulfate 325 mg PO DAILY #30 tablet 11/25/18 [Rx] Lactobacillus [Culturelle] 1 each PO BID #6 cap.sprink 11/25/18 [Rx] Allergies/Adverse Reactions: Allergy/AdvReac Type Severity Reaction Status Date / Time cephalexin [From Keflex] AdvReac Itching Verified 04/11/18 15:30 Sulfa (Sulfonamide AdvReac Itching Verified 04/11/18 15:30 Antibiotics) Date of admission: 11/23/18 13:42 Primary care physician: Deandra Dominguez Consults: 11/22/18 14:43 Consult to Tax Services Manager [CONS] Routine Reason for SW Consult: Needs help getting set up with home health - Constitutional Vitals: Temp Pulse Resp BP Pulse Ox 97.2 F L 58 16 135/80 95 11/25/18 07:00 11/25/18 07:00 11/25/18 07:00 11/25/18 07:00 11/25/18 07:00 - Patient Status Disposition: Home, Self-Care - Discharge Instructions Follow Up With: Deandra Dominguez, [employer] [Primary Care Provider] - 1 week - Diet and Activity Activity: resume usual activities as tolerated Diet: advance to your usual diet
[2018-11-25] MEDS: 0.45 % Sodium Chloride w/KCl 20 MEQ/1,000 ML MLS IVC SCH (13:48)
[2018-11-25] MEDS: Doxycycline 100 MG in 0.9 % Sodium Chloride Mini Bag 100 ML IVPB SCH (13:49)
--- NOTE | 2018-11-27 18:14 | Electrocardiograph Report ---
[place] [id number] Test Date: 2018-11-22 Pat Name: Ophelia Smith Department: EDP-14 Room: [facility] Gender: F Brusher Hand: : 1945 Requested By: Lindsay Mcdaniels Order Number: [id number] Reading MD: Concepcion Toro Measurements Intervals [place] Rate: 51 P: 39 MD: 159 QRS: 58 QRSD: 92 T: 66 QT: 501 QTc: 462 Interpretive Statements Sinus rhythm Electronically Signed On 11-27-2018 18:12:59 EDT by Concepcion Toro
== END 2018-11-25 15:15 | disposition home or self-care (01) | DRG 194 ==
LOC: INPPIK 10:31 → EMEROOPIK 10:31 → INPPIK 13:53
PROVIDERS: ADMIT Internal Medicine; ATTEND Internal Medicine